=== PATIENT | male | born 1985 | race Two or more races ===

== ENCOUNTER 2024-08-05 20:20 | Emergency (ER) | payer BC, MEDICAID ==
[~2024-08-05] VITALS: Ht 170.2 cm; Wt 124.1 kg
--- NOTE | 2024-08-05 20:42 | ED.PDOC ---
HPI (NEURO) HPI Comments 39-year-old male came to emergency room due to weakness. Patient denies any medical problems. States he woke up this morning, with right facial weakness/numbness. Noted also to have headaches, denies any blurring of vision, slurring of speech, denies any unilateral weakness or numbness. Chief Complaint: Right Sided Weakness Time Seen by MD: 20:41 Reviewed Notes: Nurses Notes Information Source: Patient Mode of Arrival: Ambulatory Severity: Moderate Dizziness/Weakness Severity: Unable to do activities Headache Severity: Moderate Timing: Hours Duration: Since onset Prehospital treatment: None Weakness Location: Facial Numbness Location: Facial Onset: With light exertion Circumstances: Spontaneous Symptoms: Weakness (Right facial), Numbness (Right facial) Associated Signs and Symptoms: Headache, Numbness (Right facial), Photophobia (Right facial) Past Medical History PAST MEDICAL HISTORY: Denies Surgical History: Denies all surgeries Family History Family History: Reviewed,noncontributory to illness Social History Smoker: Non-Smoker Alcohol: Denies ETOH Use Drugs: Denies Drug Use Lives In: Home Constitutional: denies: chills, diaphoresis, fatigue, fever, malaise, sweats, weakness, others EENTM: denies: blurred vision, double vision, ear bleeding, ear discharge, ear drainage, ear pain, ear ringing, eye pain, eye redness, hearing loss, mouth pain, mouth swelling, nasal discharge, nose bleeding, nose congestion, nose pain, photophobia, tearing, throat pain, throat swelling, voice changes, others Respiratory: denies: cough, hemoptysis, orthopnea, SOB at rest, shortness of breath, SOB with excertion, stridor, wheezing, others Cardiovascular: denies: chest pain, dizzy spells, diaphoresis, Dyspnea on exertion, edema, irregular heart beat, left arm pain, lightheadedness, palpitations, PND, syncope, others Gastrointestinal: denies: abdomen distended, abdominal pain, blood streaked bowels, constipated, diarrhea, dysphagia, difficulty swallowing, hematemesis, melena, nausea, poor appetite, poor fluid intake, rectal bleeding, rectal pain, vomiting, others Genitourinary: denies: burning, dysuria, flank pain, frequency, hematuria, incontinence, penile discharge, penile sore, pain, testicle pain, testicle swelling, urgency, others Neurological: reports: headache, right sided numbness (right facia;); denies: dizziness, fainting, left sided numbness, left sided weakness, numbness, paresthesia, pre-existing deficit, right sided weakness, seizure, speech problems, tingling, tremors, weakness, others Musculoskeletal: denies: back pain, gout, joint pain, joint swelling, muscle pain, muscle stiffness, neck pain, others Integumetry: denies: bruises, change in color, change in hair/nails, dryness, laceration, lesions, lumps, rash, wounds, others Allergic/Immunocompromised: denies: Difficulty Healing, Frequent Infections, Hives, Itching, others Hematologic/Lymphatic: denies: anemia, blood clots, easy bleeding, easy bruising, swollen glands, others Endocrine: denies: excessive hunger, excessive sweating, excessive thirst, excessive urination, flushing, intolerance to cold, intolerance to heat, unexplained weight gain, unexplained weight loss, others Psychiatric: denies: anxiety, bipolar disorder, depression, hopeless, panic dis order, schizophrenia, sleepless, suicidal, others Physical Exam General Appearance: No Apparent Distress, Normal HEENT: Normal ENT Inspection, Pharynx Normal, TMs Normal Neck: Full Range of Motion, Non-Tender, Normal, Normal Inspection Respiratory: Chest Non-Tender, Lungs Clear, No Accessory Muscle Use, No Respiratory Distress, Normal Breath Sounds Cardiovascular: No Edema, No JVD, No Murmur, No Gallop, Normal Peripheral Pulses, Regular Rate/Rhythm Breast Exam: Deferred Gastrointestinal: No Organomegaly, Non Tender, No Pulsatile Mass, Normal Bowel Sounds, Soft Genitalia: Deferred Pelvic: Deferred Rectal: Deferred Extremities: No calf tenderness, Normal capillary refill, Normal inspection, Normal range of motion, Non-tender, No pedal edema Musculoskeletal : Apperance: Normal Neurologic: Alert, clerical office II-XII nml as Tested, No Motor Deficits, Normal Affect, Normal Mood, No Sensory Deficits Cerebellar Function: Normal Reflexes: Normal Skin: Dry, Normal Color, Warm Lymphatic: No Adenopathy Was a procedure done? Was a procedure done?: No Differential Diagnosis (SZ) CVA: Moss's Palsy, CVA, Electrolyte Imbalance, Encephalopathy, TIA X-Ray, Labs, Meds, VS Vital Signs Date Time Temp Pulse Resp B/P (MAP) Pulse Ox O2 Delivery O2 Flow Rate FiO2 08/05/24 20:25 98.5 93 12 167/87 (113) 98 Time of 1ST Reevaluation: 20:36 Reevaluation 1ST: Unchanged Patient Education/Counseling: Diagnosis, Treatment Family Education/Counseling: No Family Present Departure 1 Departure Time of Disposition: 22:21 (Patient has Moss's palsy. We will discharge patient home with outpatient follow up.) Impression: Primary Impression: Moss's palsy Disposition: HOME / SELF CARE / HOMELESS Condition: Stable Additional Instructions: You have bells palsy. This is an irritation of the facial nerve usually caused by a virus. You were prescribed medications, please take as directed. It is important to use eye drops and keep your eye from drying out. You can tape your eye shut for when you sleep. It is important to follow up with the regular doctor within 1 week to ensure you are doing better. e-Prescriptions Prednisone (Prednisone) 20 Mg Tab 80 MG PO DAILY for 7 Days, #28 MG Prov: CHRISTOPHER LYNN MD 08/05/24 Valacyclovir Hcl (Valtrex) 1 Gm Tab 1 TAB PO TID for 7 Days, #21 TAB Prov: CHRISTOPHER LYNN MD 08/05/24 Discharged With: Self Critical Care Note Critical Care Time?: No Stability Stability form required: No Heart Score Heart Score: Heart Score Response (Comments) Value History N/A 0 EKG N/A 0 Age N/A 0 Risk Factors N/A 0 Troponin N/A 0 Total 0 I personally scribed for CHRISTOPHER LYNN MD ([email or web address]) on 08/05/24 at 20:42. Electronically submitted by Jean Morocho ([email or web address]). CHRISTOPHER LYNN MD Aug 05, 2024 20:42
[2024-08-05] MEDS ORDERED: VALA1TAB PO (22:29)
[2024-08-05] MEDS ORDERED: PRED20TA2 PO (22:29)
[2024-08-05 23:40] VITALS: BP 138/86; PULSE 82; RESP 15; TEMP 97.8; O2SAT 97
[2024-08-05] MEDS: predniSONE 20 MG TAB PO ONE (23:43)
[2024-08-05] MEDS: ACYCLOVIR 400 MG TAB PO ONE (23:43)
== END 2024-08-05 23:45 | disposition home or self-care (01) ==
LOC: ER 20:20
DX: G51.0 Bell's palsy (principal)
CPT/HCPCS: 99283; J7512